=== PATIENT | female | born 1985 | race Two or more races ===

== ENCOUNTER 2019-02-20 22:52 | Emergency (ER) | payer OTHER ==
[~2019-02-20] VITALS: Ht 165.1 cm; Wt 65.8 kg
[2019-02-20 23:00] VITALS: BP 109/70
[2019-02-21 00:26] LABS: Basophils # (auto) 0.1 uL; Basophils % (auto) 0.8 % (0.0-2.0); Eosinophils # (auto) 0.1 uL; Eosinophils % (auto) 1.1 % (0.0-7.0); Hematocrit 41.7 % (36.0-46.0); Hemoglobin 14.1 g/dL (12.2-16.2); Lymphocytes # (auto) 2.3 uL; Lymphocytes % (auto) 27.5 % (10.0-50.0); Mean Corpuscular Hemoglobin 31.9 pg (28.0-32.0); Mean Corpuscular Hgb Conc. 33.8 g/dL (32.0-36.0); Mean Corpuscular Volume 94.5 fL (80.0-100.0); Monocytes # (auto) 0.6 uL; Neutrophils # (auto) 5.4 uL; Neutrophils % (auto) 63.6 % (37.0-80.0); Platelet Count (auto) 298 10^3/uL (140-450); Red Blood Cells 4.41 10^6/uL (4.0-5.20); Red Cell Distribution Width 13.1 % (11.8-14.3); White Blood Cell 8.5 10^3/uL (4.4-10.8)
[2019-02-21 00:54] LABS: Albumin 4.2 g/dL (3.4-5.0); Calcium 9.5 mg/dL (8.5-10.1); Potassium 3.9 mmol/L (3.5-5.1)
[2019-02-21 00:56] LABS: Bilirubin, Total 0.6 mg/dL (0.2-1.0); Total Protein 8.3 g/dL (6.4-8.2)
== END 2019-02-21 01:50 | disposition left against medical advice (07) ==
LOC: EDBD 22:52 → ER 22:56
DX: R55 Syncope and collapse (principal); Z53.21 Procedure and treatment not carried out due to patient leaving prior to being seen by health care provider
CPT/HCPCS: 36415; 80053; 85025

== ENCOUNTER 2020-10-12 17:21 | Emergency (ER) | payer SELFPAY ==
[~2020-10-12] VITALS: Ht 165.1 cm; Wt 73.9 kg
[2020-10-12] MEDS ORDERED: ACETAMINOPHEN 325 MG TAB PO ONE (19:00)
[2020-10-12 19:19] LABS: Basophils # (auto) 0 10 ^3/uL (0-0.2); Basophils % (auto) 0.6 % (0.0-2.0); Eosinophils # (auto) 0.1 10 ^3/uL (0-0.8); Eosinophils % (auto) 0.8 % (0.0-7.0); Hematocrit 42.7 % (36.0-46.0); Hemoglobin 14.6 g/dL (12.2-16.2); Lymphocytes # (auto) 1.8 10 ^3/uL (0.4-5.4); Lymphocytes % (auto) 22.3 % (10.0-50.0); Mean Corpuscular Hemoglobin 31.5 pg (28.0-32.0); Mean Corpuscular Hgb Conc. 34.2 g/dL (32.0-36.0); Mean Corpuscular Volume 92.4 fL (80.0-100.0); Monocytes # (auto) 0.7 10 ^3/uL (0-1.3); Monocytes % (auto) 8.8 % (0.0-12.0); Neutrophils # (auto) 5.5 10 ^3/uL (1.6-8.6); Neutrophils % (auto) 67.5 % (37.0-80.0); Nucleated Red Blood Cells % 0.1 %; Red Blood Cells 4.62 10^6/uL (4.0-5.20); Red Cell Distribution Width 13.7 % (11.8-14.3); White Blood Cell 8.2 10^3/uL (4.4-10.8)
[2020-10-12 19:32] LABS: Potassium 3.9 mmol/L (3.5-5.1)
[2020-10-12 19:36] LABS: Albumin 3.7 g/dL (3.4-5.0); BUN/Creatinine Ratio 16.1; Calcium 8.6 mg/dL (8.5-10.1)
[2020-10-12 19:39] LABS: Bilirubin, Total 0.6 mg/dL (0.2-1.0); Total Protein 8.1 g/dL (6.4-8.2)
[2020-10-12 20:03] LABS: Urine Bacteria FEW /hpf (None Seen); Urine Blood 3+ /uL (Negative); Urine Specific Gravity 1.023 (1.001-1.035); Urine WBC 2 /hpf (0 - 5)
[2020-10-12 22:15] VITALS: BP 99/56
== END 2020-10-12 22:58 | disposition home or self-care (01) ==
LOC: ER 17:23
DX: O46.91 Antepartum hemorrhage, unspecified, first trimester (principal); O26.891 Other specified pregnancy related conditions, first trimester; R10.9 Unspecified abdominal pain; Z3A.09 9 weeks gestation of pregnancy
CPT/HCPCS: 36415; 76801; 76817; 80053; 81001; 84702; 85025; 86850; 86900; 86901